=== PATIENT | female | born 1990 | race Caucasian/White ===

== ENCOUNTER 2017-03-30 13:00 | Inpatient (IN) | payer BC ==
[~2017-03-30] VITALS: Ht 162.6 cm; Wt 108.9 kg
[2017-03-30] MEDS ORDERED: LR 1,000 ML IV ONE (13:43)
[2017-03-30] MEDS ORDERED: CEFAZOLIN 2 GM IVPB PREMIX 50 ML IV ONE (13:45)
[2017-03-30] MEDS ORDERED: AMPICILLIN SODIUM 2 GM in NS 100 ML IV ONE (13:45)
[2017-03-30] MEDS ORDERED: GENTAMICIN 100 mg/50 mL NS 50 ML IV ONE (13:45)
[2017-03-30 14:28] LABS: BILIRUBIN,URINE NEGATIVE (NEGATIVE); BLOOD, URINE 1+ (NEGATIVE); CLARITY/URINE HAZY (CLEAR); COLOR,URINE YELLOW (YELLOW); GLUCOSE,URINE NEGATIVE (NEGATIVE); KETONES,URINE NEGATIVE (NEGATIVE); LEUKOCYTE ESTERASE ,URINE 1+ (NEGATIVE); NITRITE, URINE NEGATIVE (NEGATIVE); PH,URINE 8.5 (5.0-8.0); PROTEIN URINE NEGATIVE (NEGATIVE)
[2017-03-30 14:29] LABS: HEMATOCRIT 38.4 % (36-48); HEMOGLOBIN 12.1 g/dL (12.0-16.0); MEAN CORPUSCULAR HEMOGLOBIN 25 pg (27-31); MEAN CORPUSCULAR HGB CONC 32 % (32-36); MEAN CORPUSCULAR VOLUME 79 fL (79.0-98.0); PLATELET COUNT (AUTO) 205 K/uL (130-430); RED BLOOD CELL COUNT(AUTO) 4.85 MIL/uL (4.2-6.2); WHITE BLOOD COUNT (AUTO) 12.7 K/uL (4.8-10.8)
[2017-03-30 14:35] LABS: CALCIUM 9.4 mg/dL (8.4-11.0); CREATININE 0.56 mg/dL (0.55-1.30); POTASSIUM 3.7 mmol/L (3.5-5.1)
[2017-03-30 14:36] LABS: ALBUMIN 2.8 g/dL (3.4-4.8); TOTAL BILIRUBIN 0.9 mg/dL (0.0-1.0)
[2017-03-30] MEDS ORDERED: AMPICILLIN SODIUM 2 GM VIAL ONE (14:44)
[2017-03-30 14:54] LABS: BACTERIA,URINE MODERATE /HPF (None Seen)
[2017-03-30 14:55] LABS: ATYPICAL LYMPHOCYTES % 0 % (0-0); BAND % (MANUAL) 8 % (0-6); BASOPHILS % (MANUAL) 0 % (0-2); EOSINOPHILS % (MANUAL) 0 % (0-7); LYMPHOCYTES % (MANUAL) 7 % (20-46); MONOCYTES % (MANUAL) 5 % (0-11)
[2017-03-30] MEDS ORDERED: LR 1,000 ML IV SCH ×2 (15:21→15:49)
[2017-03-30] MEDS ORDERED: MEPERIDINE HCL/PF 50 MG/ML AMP IVP PRN ×2 (15:30)
[2017-03-30] MEDS ORDERED: ONDANSETRON HCL 4 MG/2 ML VIAL IVP PRN (15:30)
[2017-03-30] MEDS ORDERED: KETOROLAC TROMETHAMINE 60 MG/2 ML VIAL IM PRN (15:30)
[2017-03-30] MEDS ORDERED: METOCLOPRAMIDE HCL 10 MG/2 ML VIAL IVP PRN (15:30)
[2017-03-30] MEDS ORDERED: MORPHINE SULFATE 10MG/10ML PF AMP SP SCH (15:30)
[2017-03-30] MEDS ORDERED: NALOXONE HCL 0.4 MG/ML AMP (NARCAN) IVP PRN (15:30)
[2017-03-30] MEDS ORDERED: MEPERIDINE HCL/PF 25 MG/ML DISP.SYRIN IVP PRN (15:30)
[2017-03-30] MEDS ORDERED: DIPHENHYDRAMINE INJ 50 MG/ML VIAL IM PRN (15:30)
[2017-03-30] MEDS ORDERED: OXYTOCIN/NORMAL SALINE 1,000 ML IV ONE (15:49)
[2017-03-30] MEDS ORDERED: MEASLES,MUMPS&RUBELLA VACC/PF 12500 UNIT/0.5 ML VIAL SUBQ PRN (16:00)
[2017-03-30] MEDS ORDERED: ANUSOL 1 EA SUPP.RECT (PREPARATION H) RC PRN (16:00)
[2017-03-30] MEDS ORDERED: SIMETHICONE 80 MG TAB.CHEW PO PRN (16:00)
[2017-03-30] MEDS ORDERED: SENNOSIDES/DOCUSATE SODIUM 1 TAB TABLET(SENOKOT-S) PO PRN (16:00)
[2017-03-30] MEDS ORDERED: RHO(D) IMMUNE GLOBULIN/MALTOSE 1500 UNITS/1.3 ML (WINHRO) IM PRN (16:00)
[2017-03-30] MEDS ORDERED: LANOLIN 7 GM OINT. TP PRN (16:00)
[2017-03-30] MEDS ORDERED: BISACODYL 10 MG/SUPPOSITORY RC PRN (16:00)
[2017-03-30] MEDS ORDERED: HYDROcodone/ACETAMIN 5-325 MG TAB (NORCO/ VICODIN) PO PRN (16:00)
[2017-03-30] MEDS: AMPICILLIN SODIUM 1 GM in NS 50 ML IV SCH (17:53)
[2017-03-30] MEDS ORDERED: AMPICILLIN SODIUM 1 GM VIAL ONE (17:57)
[2017-03-30 18:57] VITALS: BP_SYST 138
[2017-03-30] MEDS ORDERED: TEMAZEPAM 15 MG CAPSULE PO PRN (21:00)
[2017-03-30] MEDS ORDERED: GENTAMICIN 80 mg/100 mL NS 100 ML IV SCH (22:00)
[2017-03-31] MEDS ORDERED: AMPICILLIN SODIUM 1 GM VIAL ONE ×3 (00:23→17:41)
[2017-03-31] MEDS: AMPICILLIN SODIUM 1 GM in NS 50 ML IV SCH ×4 (00:51→17:47)
[2017-03-31] MEDS: KETOROLAC TROMETHAMINE 30 MG VIAL IM SCH ×2 (00:58→05:28)
[2017-03-31] MEDS ORDERED: KETOROLAC TROMETHAMINE 30 MG VIAL ONE (05:34)
[2017-03-31] MEDS ORDERED: KETOROLAC TROMETHAMINE 30 MG VIAL IVP SCH (06:00)
[2017-03-31 07:44] LABS: BASOPHILS % (AUTO) 0.2 % (0.0-2.0); EOSINOPHILS % (AUTO) 0.3 % (0.0-4.0); HEMATOCRIT 34.1 % (36-48); HEMOGLOBIN 10.6 g/dL (12.0-16.0); LYMPHOCYTES % (AUTO) 12.9 % (20.5-51.5); MEAN CORPUSCULAR HEMOGLOBIN 25 pg (27-31); MEAN CORPUSCULAR HGB CONC 31 % (32-36); MONOCYTES # (AUTO) 0.8 K/uL (0.0-1.0); MONOCYTES % (AUTO) 5.2 % (1.7-9.3); NEUTROPHILS # (AUTO) 12.3 K/uL (1.8-7.7); PLATELET COUNT (AUTO) 190 K/uL (130-430); RED CELL DISTRIBUTION WIDTH 22.5 % (9.0-15.0); WHITE BLOOD COUNT (AUTO) 15.1 K/uL (4.8-10.8)
[2017-03-31 07:58] LABS: MEAN CORPUSCULAR VOLUME 81 fL (79.0-98.0)
[2017-03-31 07:59] LABS: NEUTROPHILS % (AUTO) 81.4 % (40.0-70.0)
[2017-03-31] MEDS ORDERED: TERBUTALINE SULFATE 1 MG/ML VIAL SUBCUT ONE ×2 (10:00)
[2017-03-31] MEDS ORDERED: TERBUTALINE SULFATE 1 MG/ML VIAL ONE (10:04)
[2017-03-31] MEDS: IBUPROFEN 600 MG TABLET PO SCH (17:46)
[2017-03-31] MEDS: OXYCODONE/ACETAMINOPHEN 5-325 TABLET PO PRN (23:05)
[2017-04-01] MEDS: IBUPROFEN 600 MG TABLET PO SCH ×4 (00:11→17:39)
[2017-04-01] MEDS: DOCUSATE SODIUM 100 MG CAPSULE PO PRN (05:50)
[2017-04-01] MEDS: OXYCODONE/ACETAMINOPHEN 5-325 TABLET PO PRN ×2 (14:30→22:09)
[2017-04-01] MEDS ORDERED: BISACODYL 10 MG/SUPPOSITORY RC ONE (19:15)
[2017-04-02] MEDS: DOCUSATE SODIUM 100 MG CAPSULE PO PRN (00:03)
[2017-04-02] MEDS: IBUPROFEN 600 MG TABLET PO SCH ×3 (00:03→12:38)
[2017-04-02] MEDS: OXYCODONE/ACETAMINOPHEN 5-325 TABLET PO PRN ×2 (04:43→12:39)
--- NOTE | 2017-04-02 14:33 | NUR ---
Dietitian Recommendations * Recommend continuing regular diet per LP, RD Please refer to Nutrition Assessment for details.
== END 2017-04-02 14:00 | disposition home or self-care (01) | DRG 765 ==
LOC: SPU 13:00 → OBSVTOIN 13:00
PROVIDERS: ADMIT Specialist; ATTEND Specialist
PROC: 3E0134Z Introduction of Serum, Toxoid and Vaccine into Subcutaneous Tissue, Percutaneous Approach (ICD-10-PCS; 2017-03-30)
PROC: 10D00Z1 Extraction of Products of Conception, Low, Open Approach (ICD-10-PCS; principal; 2017-03-30 14:00)
DX: O34.211 Maternal care for low transverse scar from previous cesarean delivery (principal); O75.2 Pyrexia during labor, not elsewhere classified; Z68.41 Body mass index [BMI] 40.0-44.9, adult; E66.01 Morbid (severe) obesity due to excess calories; J45.909 Unspecified asthma, uncomplicated; O99.52 Diseases of the respiratory system complicating childbirth; O99.214 Obesity complicating childbirth; O76 Abnormality in fetal heart rate and rhythm complicating labor and delivery; O77.0 Labor and delivery complicated by meconium in amniotic fluid; Z37.0 Single live birth; Z3A.39 39 weeks gestation of pregnancy; Z23 Encounter for immunization
CPT/HCPCS: 36415; 80053; 80170-TC; 81000-TC; 85007; 85025; 85027; 86592; 86886; 86900; 86901; 87040-TC; 87070-TC; 87075-TC; 87086; 88307; 94760; J0290; J1580; J1885; J2590; J3105; J7120